=== PATIENT | female | born 1960 | race Caucasian/White ===

== ENCOUNTER 2018-11-08 08:54 | Outpatient (CLI) | payer BC, SELFPAY | END 2018-11-08 09:14 | PROVIDERS: PCP Internal Medicine; Visit Provider Internal Medicine Interventional Cardiology | DX: R07.89 Other chest pain (principal); Z82.49 Family history of ischemic heart disease and other diseases of the circulatory system | CPT/HCPCS: 93005; 93010 ==

== ENCOUNTER 2019-08-23 14:52 | Outpatient (REF) | payer BC, SELFPAY ==
[2019-08-23 19:24] LABS: ALT 35 U/L (14-59); AST 21 U/L (15-37); Albumin 4.2 g/dL (3.4-5.0); Alkaline Phosphatase 82 U/L (46-116); Anion Gap 9.1 mmol/L (3-11); BUN 18 mg/dL (7-18); Bilirubin, Total 0.6 mg/dL (0.2-1.0); CO2 27.9 mmol/L (21.0-32.0); CREATININE 0.83 mg/dL (0.55-1.02); Calcium 9.9 mg/dL (8.5-10.1); Chloride 105 mmol/L (98-107); Glucose 96 mg/dL (74-106); Sodium 142 mmol/L (136-145); TSH 1.86 uIU/mL (0.36-3.74); Total Protein 7.7 g/dL (6.4-8.2)
== END 2019-08-23 15:12 ==
LOC: NCHCN 14:52
PROVIDERS: PCP Internal Medicine; Visit Provider Nurse Practitioner Family
DX: E03.9 Hypothyroidism, unspecified (principal); R03.0 Elevated blood-pressure reading, without diagnosis of hypertension
CPT/HCPCS: 80053; 84443

== ENCOUNTER 2021-02-27 22:12 | Outpatient (REF) | payer BC, SELFPAY ==
[2021-03-01 10:56] LABS: COVID-19 RT-PCR UVMMC Result Negative (Negative)
== END 2021-02-27 22:13 | disposition home or self-care (01) ==
LOC: NCHCN 22:12
PROVIDERS: PCP Internal Medicine; Visit Provider Nurse Practitioner Family
DX: Z20.822 Contact with and (suspected) exposure to COVID-19 (principal)
CPT/HCPCS: U0003

== ENCOUNTER 2021-05-22 16:48 | Outpatient (REF) | payer BC, SELFPAY ==
[2021-05-22 21:29] LABS: ALT 44 U/L (14-59); AST 31 U/L (15-37); Albumin 4.5 g/dL (3.4-5.0); Alkaline Phosphatase 89 U/L (46-116); Anion Gap 4.2 mmol/L (3-11); BUN 16 mg/dL (7-18); Bilirubin, Total 0.7 mg/dL (0.2-1.0); CO2 32.8 mmol/L (21.0-32.0); CREATININE 0.7 mg/dL (0.55-1.02); Calcium 10.5 mg/dL (8.5-10.1); Chloride 102 mmol/L (98-107); Glucose 90 mg/dL (74-106); Potassium 4.1 mmol/L (3.5-5.1); Sodium 139 mmol/L (136-145); TSH 2.61 uIU/mL (0.36-3.74); Total Protein 8.1 g/dL (6.4-8.2)
== END 2021-05-22 16:49 | disposition home or self-care (01) ==
LOC: NCHCN 16:48
PROVIDERS: PCP Internal Medicine; Visit Provider Nurse Practitioner Family
DX: E03.9 Hypothyroidism, unspecified (principal); I10 Essential (primary) hypertension; E78.5 Hyperlipidemia, unspecified
CPT/HCPCS: 80053; 84443

== ENCOUNTER 2021-09-05 17:27 | Outpatient (REF) | payer BC, SELFPAY ==
--- NOTE | 2021-09-05 16:45 | PAPFT_PTH ---
PATIENT: Maren Luevano LOC: [facility]#:[id number] AGE/SX: 60/F ROOM: RE09/05/[address]: King Madrigal : 1960 BED: DIS: 09/05/2021 SPEC #: [id number] RECD: 09/05/21 18:30 STATUS: NADIA REQ #: [id number] JILLIAN: 09/05/21 16:[address]: Isi Madrigal DEPT: [facility] Cytology RECD BY: Audrey Desouza ENTERED: 09/05/21 18:31 SP TYPE: PAPFT OTHR DR: Joshua Murdock Tissues: 1 - CX/ENDOCX FOR PAP SMEARS Procedures: PAP THIN PREP/[facility] Screening HPV DNA PROBE Comments: [id number]
--- OUTSIDE RECORDS SUMMARY | 2021-09-05 17:28 | XMS_ITS ---
:1960 Author Care Team Providers Name Role Phone DEANNE HENSON MD General Surgeon [phone] KISHA GARCIA MD General Surgeon [phone] Allergies Code Code System Name Reaction Severity Status Onset NKDA ? Medications Name Status Start Date Stop Date ? ? atorvastatin 10 mg tablet Active ? Not av ailable levothyroxine 125 mcg tablet Completed ? 05/2019 levothyroxine 137 mcg tablet Active ? Not available Problems Name Status Onset Date Source ? Benign Neoplasm of Skin Active 09/13/2018 ? Goiter Active 09/13/2018 ? Hypothyroidism Active 09/13/2018 ? Body Mass Index 30+ - Obesity Active 09/13/2018 ? Family History of Cancer of Colon Active 09/13/2018 ? Family History of Cardiovascular Disease Active 019 ? Varicose Veins of Bilateral Lower Limbs Active 09/14/19 19 ? Procedures Date Name Performed by ? 01/12/2019 Colonoscopy Information not avai lable Notes: 1 sm polyp. diverticuli, exter nal hemorrhoids. 06/08/1985 Section Information not avai lable 06/08/1970 Appendectomy Information not avai lable Results Lab Results Date Name Specimen Result Interpretation Description Value Range Status Address ? 01/12/2019 Pathology TISS - Report results ? Final N [facility] Study below [facility] L ab (Internal) : [address] 09/10/2018 TSH, Serum S High Tsh 7.36 0.47 Final No rth Country or Plasma u[IU]/mL -4.6 Hospi ursula Lab 8 (Internal) : u[IU [address] ]/mL [place] 09/10/2018 Lipid Panel, S - Chol 141 mg/dL 50-2 [facility] Serum 00 Hospital L ab mg/d (Internal) : [address] ? ? S - Trig 68 mg/dL 10-1 [facility] untry 50 Hospital L ab mg/d (Internal) : L [address] ? ? S - Hdl 51 mg/dL 40-[address] L ab mg/d (Internal) : [address] ? ? S - Ldl 76 mg/dL 0-[address] L ab mg/d (Internal) : [address] 09/10/2018 Glucose, S - Fbs 94 mg/dL 74-1 Final No rth Country Fasting, 06 Hospital Lab Serum/plasma mg/d (Int ernal): [address] Past Encounters None recorded. Social History Tobacco Smoking Status Never Smoker Vaccine List None recorded. Plan of Care Reminders Provider Appointments None ? ? recorded. Lab None ? ? recorded. Referral None ? ? recorded. Procedures None ? ? recorded. Surgeries None ? ? recorded. Imaging None ? ? recorded. Vitals 09/17/2018 12:30PM Office 15 Height 172.09 cm 08/19/2018 Height Weight BMI Blood Pressure 172.09 cm 97.98 kg 33.1 kg/m2 131/84 mm[Hg]
[2021-09-05 19:19] LABS: Anion Gap 8.4 mmol/L (3-11); BUN 18 mg/dL (7-18); CO2 30.6 mmol/L (21.0-32.0); CREATININE 0.8 mg/dL (0.55-1.02); Chloride 101 mmol/L (98-107); Glucose 91 mg/dL (74-106); Potassium 4.1 mmol/L (3.5-5.1); Sodium 140 mmol/L (136-145)
== END 2021-09-05 17:28 | disposition home or self-care (01) ==
LOC: NCHCN 17:27
PROVIDERS: PCP Internal Medicine; Visit Provider Nurse Practitioner Family
DX: E83.52 Hypercalcemia (principal); Z12.4 Encounter for screening for malignant neoplasm of cervix; Z11.51 Encounter for screening for human papillomavirus (HPV); R87.610 Atypical squamous cells of undetermined significance on cytologic smear of cervix (ASC-US); Z01.419 Encounter for gynecological examination (general) (routine) without abnormal findings
CPT/HCPCS: 80048; 88142; 87624

== ENCOUNTER 2021-11-26 17:48 | Outpatient (REF) | payer BC, SELFPAY ==
[2021-11-26 19:22] LABS: Calcium 10.1 mg/dL (8.5-10.1)
== END 2021-11-26 17:49 | disposition home or self-care (01) ==
LOC: NCHCN 17:48
PROVIDERS: PCP Internal Medicine; Visit Provider Nurse Practitioner Family
DX: E83.52 Hypercalcemia (principal)
CPT/HCPCS: 82310

== ENCOUNTER 2024-01-27 23:59 | Outpatient (REF) | payer BC, SELFPAY ==
[2024-01-27 21:18] LABS: ALT 37 U/L (14-59); AST 29 U/L (15-37); Albumin 4.2 g/dL (3.4-5.0); Alkaline Phosphatase 88 U/L (46-116); Anion Gap 6.5 mmol/L (3-11); BUN 13 mg/dL (7-18); Bilirubin, Total 0.61 mg/dL (0.2-1.0); CO2 27.5 mmol/L (21.0-32.0); CREATININE 0.9 mg/dL (0.55-1.02); Calcium 10.8 mg/dL (8.5-10.1); Chloride 105 mmol/L (98-107); Estimated GFR 72.28 (mL/min/1.73m2); Glucose 93 mg/dL (74-106); Potassium 4.3 mmol/L (3.5-5.1); Sodium 139 mmol/L (136-145); TSH (W/Ref FT4) 16.07 uIU/mL (0.36-3.74); Total Protein 8.2 g/dL (6.4-8.2)
[2024-01-27 21:39] LABS: FREE T4 1.11 ng/dL (0.76-1.46)
== END 2024-01-28 | disposition home or self-care (01) ==
LOC: NCHCN 23:59
PROVIDERS: PCP Internal Medicine; Visit Provider Nurse Practitioner Family
DX: E03.9 Hypothyroidism, unspecified (principal); E78.5 Hyperlipidemia, unspecified
CPT/HCPCS: 80053; 84439; 84443

== ENCOUNTER 2024-03-16 18:21 | Outpatient (REF) | payer BC, SELFPAY ==
[2024-03-16 20:55] LABS: Calcium 10.2 mg/dL (8.5-10.1); Vitamin D 25 Total 18.8 ng/mL (30-100)
[2024-03-17 20:55] LABS: Parathyroid Hormone,Intact 97 pg/mL (19-88)
== END 2024-03-16 18:22 | disposition home or self-care (01) ==
LOC: NCHCN 18:21
PROVIDERS: PCP Internal Medicine; Visit Provider Nurse Practitioner Family
DX: E03.9 Hypothyroidism, unspecified (principal); E83.52 Hypercalcemia
CPT/HCPCS: 82306; 82310; 83970; 84443

== ENCOUNTER 2024-10-12 17:11 | Outpatient (REF) | payer BC, SELFPAY ==
[2024-10-12 20:30] LABS: Vitamin D 25 Total 21 ng/mL (30-100)
[2024-10-13 18:41] LABS: Parathyroid Hormone,Intact 177 pg/mL (19-88)
== END 2024-10-12 17:12 | disposition home or self-care (01) ==
LOC: NCHCN 17:11
PROVIDERS: PCP Internal Medicine; Visit Provider Nurse Practitioner Family
DX: E55.9 Vitamin D deficiency, unspecified (principal)
CPT/HCPCS: 82306; 83970

== ENCOUNTER 2025-01-31 15:54 | Outpatient (REF) | payer BC, SELFPAY ==
[2025-01-31 19:58] LABS: ALT 38 U/L (14-59); AST 28 U/L (15-37); Albumin 4.1 g/dL (3.4-5.0); Alkaline Phosphatase 100 U/L (46-116); Anion Gap 10.1 mmol/L (3-11); BUN 11 mg/dL (7-18); Bilirubin, Total 1.0 mg/dL (0.2-1.0); CO2 26.9 mmol/L (21.0-32.0); Calcium 10.1 mg/dL (8.5-10.1); Calculated LDL 79 mg/dL (<100); Chloride 105 mmol/L (98-107); Cholesterol 147 mg/dL (<200); Estimated GFR 97.12 (mL/min/1.73m2); Glucose 92 mg/dL (74-106); HDL Cholesterol 51 mg/dL (>or=50); Potassium 4.2 mmol/L (3.5-5.1); Sodium 142 mmol/L (136-145); TSH (W/Ref FT4) 7.49 uIU/mL (0.36-3.74); Total Protein 7.9 g/dL (6.4-8.2); Triglyceride 88 mg/dL (<150); Vitamin D 25 Total 26 ng/mL (30-100)
== END 2025-01-31 15:55 | disposition home or self-care (01) ==
LOC: NCHCN 15:54
PROVIDERS: PCP Internal Medicine; Visit Provider Nurse Practitioner Family
DX: E55.9 Vitamin D deficiency, unspecified (principal); E03.9 Hypothyroidism, unspecified; E78.5 Hyperlipidemia, unspecified
CPT/HCPCS: 80053; 80061; 82306; 84439; 84443

== ENCOUNTER 2025-04-07 09:46 | Outpatient (REF) | payer BC, SELFPAY ==
[2025-04-07 20:30] LABS: TSH 1.27 uIU/mL (0.36-3.74)
== END 2025-04-07 09:47 | disposition home or self-care (01) ==
LOC: NCHCN 09:46
PROVIDERS: PCP Internal Medicine; Visit Provider Nurse Practitioner Family
DX: E03.9 Hypothyroidism, unspecified (principal)
CPT/HCPCS: 84443